=== PATIENT | female | born 1990 | race Two or more races ===

== ENCOUNTER 2019-03-21 19:10 | Inpatient (IN) | payer OTHER ==
[2019-03-21] MEDS ORDERED: DINOPROSTONE 10 MG VAGINAL SUPPOSITORY VG ONE (20:11)
[2019-03-21 20:56] LABS: BASO % 0.4 % (0-2.0); EOS % 0.3 % (0-4.5); HEMATOCRIT 31.8 % (32.4-45.2); HEMOGLOBIN 10.5 GM/dL (10.7-15.3); LYMPH % 26.5 % (8-40); MCH 27.3 pg (25.7-33.7); MCHC 33.1 g/dl (32.0-36.0); MEAN CELL VOLUME 82.5 fl (80-96); MEAN PLT VOLUME 10.2 fl (7.5-11.1); MONO % 8.8 % (3.8-10.2); PLATELET COUNT 226 K/MM3 (134-434); RBC 3.86 M/mm3 (3.60-5.2); RDW 15.2 % (11.6-15.6); WHITE BLOOD COUNT 6.6 K/mm3 (4.0-10.0)
[2019-03-21 21:11] LABS: INR 0.82 (0.83-1.09); PROTHROMBIN TIME (PATIENT) 9.7 SEC (9.7-13.0)
[2019-03-21 21:13] LABS: ACTIVATED PTT 26.8 SECONDS (25.2-36.5)
[2019-03-21 21:16] LABS: BLOOD UREA NITROGEN 11.2 mg/dL (7-18); CALCIUM 8.4 mg/dL (8.5-10.1); CREATININE 0.7 mg/dL (0.55-1.3); POTASSIUM 4.2 mmol/L (3.5-5.1)
--- NOTE | 2019-03-21 21:16 | HP ---
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: Alzheimer's, CVA, Dementia, Migraine, Multiple Sclerosis, Peripheral Neuropathy, Parkinson's, Seizure, Syncope, TIA, Vertigo, Other Cardiovascular: No: AFIB, Aneurysm, Aortic Insufficiency, Aortic Stenosis, CAD, CHF, Deep Vein Thrombosis, HTN, Hyperlipdemia, SC, Mitral Insufficiency, Mitral Stenosis, Murmur, Pulmonary Hypertension, Other Pulmonary: No: Asthma, Bronchitis, Cancer, COPD, O2 Dependent, Pneumonia, Previously Intubated, Pulmonary Embolus, Pulmonary Fibrosis, Sleep Apnea, Other Gastrointestinal: No: Ascites, Cancer, Constipation, Crohn's Disease, Diverticulitis, Diverticulosis, Esophageal Varices, Gastritis, GERD, GI Bleed, Hemorrhoids, Hiatal Hernia, Inflamatory Bowel Disease, Irritable Bowel Disease, Pancreatitis, Peptic Ulcer Disease, Ulcerative Colitis, Other Hepatobiliary: No: Cirrhosis, Cholelithiasis, Cholecystitis, Choledocholithiasis , Hepatitis A, Hepatitis B, Hepatitis C, Other Renal/: No: Renal Failure, Renal Inusuff, BPH, Cancer, Hematuria, Hemodialysis , Neurogenic Bladder, Renal Calculi, UTI, Other Reproductive: No: Ectopic , Endometriosis, Fibroids, PID, Polycystic Ovary Syndrome, Postmenopausal, Other Heme/Onc: No: Anemia, B12 Deficiency, Bleeding Disorder, Cancer, Current Chemotherapy, Current Radiation Therapy, Hemochromatosis, Hypercoaguable State, Myeloproliferative Synd, Sickle Cell Disease, Sickle Cell Trait, Thrombocytopenia, Other Infectious Disease: No: AIDS, C-Diff, Herpes Zoster, HIV, MRSA, STD's, Tuberculosis, VREF, Other Psych: No: Addictions, Anxiety, Bipolar, Depression, Panic, Psychosis, Schizophrenia, Other Musculoskeletal: No: Bursitis, Chronic low back pain, Hemiparesis, Hemiplegia, Osteoarthritis, Paraplegia, Other Rheumatology: No: Fibromyalgia, Gout, Lupus, Rheumatoid Arthritis, Sarcoidosis, Vasculitis, Other ENT: No: Allergic Rhinitis, Sinusitis, Other Endocrine: No: [place]'s Disease, Melody's Disease, Diabetes Insipidus, Diabetes Mellitus, Hyperparathyroidism, Hyperthyroidism, Hypothyroidism, Osteopenia, SIADH, Other Dermatology: No: Basal Cell, Cellulitis, Eczema, Melanoma, Psoriasis, Squamous Cell, Other - Past Surgical History Past Surgical History: No: None, AAA Repair, AICD, Amputation, Appendectomy, Arthrosocopy, AV Fistula/Graft, Bariatric Surgery, Breast Biopsy, Bypass, CABG, Carotid Endarterectomy, Cataract Removal, Cholecystectomy, Colectomy, Colonoscopy, Colostomy, Craniotomy, , Cystectomy, Hernia Repair, Hysterectomy, Ileal Conduit, Ileosotomy, Joint Replacement, Kidney Transplant, Laminectomy, Liver Transplant, Mastectomy, Nephrectomy, Oopherectomy, Orchiectomy, Permanent Pacemaker, Prostatectomy, Splenectomy, Stent, Thoracotomy , TURP, Tonsillectomy, Tubal Ligation, Upper Endoscopy, Valve Replacement, Vasectomy, Vein Stripping/Ligation Hx Myomectomy: No Hx Transabdominal Cerclage: No - Smoking History Smoking history: Never smoked - Alcohol/Substance Use Hx Alcohol Use: No History of Substance Use: reports: None - Social History History of Recent Travel: No Family Medical History Family History: Unremarkable Review of Systems Unable to obtain ROS, reason: unremarkable - Review of Systems Constitutional: reports: No Symptoms Eyes: reports: No Symptoms HENT: reports: No Symptoms Neck: reports: No Symptoms Cardiovascular: reports: No Symptoms Respiratory: reports: No Symptoms Gastrointestinal: reports: No Symptoms Genitourinary: reports: No Symptoms Breasts: reports: No Symptoms Reported Musculoskeletal: reports: No Symptoms Integumentary: reports: No Symptoms Neurological: reports: No Symptoms Endocrine: reports: No Symptoms Hematology/Lymphatic: reports: No Symptoms Psychiatric: reports: No Symptoms Physical Exam - Maternity Vital Signs: as reported Constitutional: Yes: Well Nourished HENT: Yes: Atraumatic Neck: Yes: Supple Cardiovascular: Yes: Regular Rate and Rhythm Breast(s): Yes: Other (deferred) - Abdominal Exam/OB Number of Fetuses: Single Presentation: Vertex (bedside sono: Cephalic) Contractions: No Regularity: Irritability Intensity: Unaware Monitor Mode: External Category: I Accelerations: Uniform Decelerations: None - Vaginal Exam/OB Vaginal Bleediing: Yes Speculum Exam: No (Cervidil placed in vaginal vault) Dilatation (cm): 0 Effacement (%): 0 Amniotic Membrane Status: Intact Presentation: Vertex/Position (bedside sono) Station: -3 - Physical Exam Musculoskeletal: Yes: WNL Extremities: Yes: WNL Edema: No Integumentary: Yes: WNL Deep Tendon Reflex Grade: Normal +2 ...Motor Strength: WNL Psychiatric: Yes: Alert, Oriented - Labs Lab Results: CBC, BMP 03/21/19 20:25 Imaging - Results Ultrasound: Report Reviewed Assessment/Plan 28 y/o G1 @ 40.6wks, induction of labor due to late term, reassuring status, unfavorable cervix, EFW approximately 3500 by official sono. Patient was extensively counseled regarding indcution of labor including risks/ complications -Admit -Induction of labor with cervidil
[2019-03-21] MEDS: ELECTROLYTE-148 SOLN 1,000 ML IV SCH (21:30)
[2019-03-21 21:39] VITALS: BMI 31.2
--- NOTE | 2019-03-22 08:48 | PN ---
Ante-Partal Exam - Subjective Subjective: Patient evaluated following cervidil falling out. Vital Signs: Vital Signs Temperature 97.4 F L 03/22/19 07:00 Pulse Rate 77 03/22/19 08:00 Respiratory Rate 20 03/22/19 08:00 Blood Pressure 118/66 03/22/19 08:00 O2 Sat by Pulse Oximetry (%) Bleeding: No Headache: No Visual changes: No Right upper quadrant pain: No - Contractions Contractions: Yes Regularity: Irregular Intensity: Mild Monitor Mode: External - Exam during Labor Heart Rate: 130 Variability: Moderate Category: I Monitor Accelerations: Present Monitor Decelerations: None Exam: Vaginal (cervidil placed in vaginal vault) Dilatation (cm): 0.5 Effacement (%): 20 Amniotic Membrane Status: Intact Presentation: Vertex Station: -3 - Assessment/Plan Assessment/Plan: 28 y/o G1 @ 41.0wks, induction of labor for late term, reassuring status, stable maternal condition -Continue IOL with cervidil -Continuous monitoring -regular diet for breakfast
--- NOTE | 2019-03-22 15:42 | PN ---
Progress Note (short form) - Note Progress Note: 28 yrs , 41 weeks , s/p cervidil induction , 2nd cervidil inserted 8.25 AM gbs neg heart tracing reviewed cat-1 uc are irregular 2-3-5 min mild to moderate pt ambulating pelvic exam : 3 cm/80 % mi /vx -2 /pelvis adequate pt prefers iv meds for labor analgesia . pt wants to continue ambulation last sono on 03/16/19, 38.3 weeks, , vx, , sivakumar 10.5, efw 7'12" ( 50 %tile) . Nt/ AFP screen neg Selected Entries 03/22/19 15:11 Temperature 98.2 F Pulse Rate 72 Blood Pressure 138/[address] induction of labor trial of vaginal delivery Laboratory Tests 03/21/19 03/21/19 03/21/19 20:25 20:25 20:25 WBC 6.6 Hgb 10.5 L Hct 31.8 L Plt Count 226 PT with INR 9.70 INR 0.82 L PTT (Actin FS) 26.8 Sodium 139 Potassium 4.2 Chloride 110 H Carbon Dioxide 21 BUN 11.2 Creatinine 0.7 Random Glucose 75 Calcium 8.4 L RPR Titer 03/21/19 20:25 WBC Hgb Hct Plt Count PT with INR INR PTT (Actin FS) Sodium Potassium Chloride Carbon Dioxide BUN Creatinine Random Glucose Calcium RPR Titer Nonreactive
[2019-03-22] MEDS ORDERED: FENTANYL/BUPIVACAINE/NS/PF - PCEA - 50 ML DISP.SYRIN EP ONE (17:00)
--- NOTE | 2019-03-22 17:42 | PN ---
Progress Note (short form) - Note Progress Note: 4.55 PM uc are irregular 1-3 min , mod to strong fhr 150-170 , base line gradually risen up from 140 to 150 to, 160,. accels to 170 bpm pt uncomfortable pelvic 4cm/80 %/DE /Vx -2/pelvis adequate cervidil removed pt agrees for epidural labor analgesia Selected Entries 03/22/19 03/22/19 16:00 16:11 Temperature 99.0 F 99.0 F Pulse Rate 76 Blood Pressure 138/76 repeat temp 5.30PM 98.7 will start pitocin augmentation , when base line is normal wiihin range of 140- 160 , fhr cat-1
[2019-03-22] MEDS ORDERED: NALOXONE HCL 0.4 MG/ML VIAL IVPUSH PRN (18:04)
[2019-03-22] MEDS ORDERED: FENTANYL/BUPIVACAINE/NS/PF - PCEA - 50 ML DISP.SYRIN EP SCH (18:15)
[2019-03-22] MEDS ORDERED: OXYTOCIN 30 UNITS in 0.9% NS 30 UNIT/500 ML INFUS.BAG IVPB SCH (18:15)
[2019-03-22] MEDS ORDERED: OXYTOCIN 30 UNITS in 0.9% NS 30 UNIT/500 ML INFUS.BAG IVPB ONE (18:18)
--- NOTE | 2019-03-22 19:45 | PN ---
Progress Note, Labor Vaginal Exam #1 Labor Exam Date: 03/22/19 Labor Exam Time: 19:30 Heart Rate (range): 130-140 Dilatation: 6-7 Effacement (%): 90 Amniotic Membrane Status: Ruptured (srom at 19.20 hr light meconium) Presentation: Vertex/Position Station: -1 (-1/0) Remarks: uc 3-5 min fhr cat-1 epidural given at 17.30 hr pitocin augmentation at 18.25 hr Selected Entries 03/22/19 03/22/19 18:45 19:00 Temperature 99.7 F H Pulse Rate 72 Blood Pressure 132/79 Vaginal Exam #2 Labor Exam Date: 03/22/19 Labor Exam Time: 20:20 Heart Rate (range): 130 Dilatation: 10 Effacement (%): 100 Amniotic Membrane Status: Ruptured Station: +2 Remarks: uc 2-3 min fhr cat-1 , early decl seen pt feels pressure Selected Entries 03/22/19 03/22/19 19:30 20:00 Temperature 99.5 F Pulse Rate 72 Blood Pressure 148/83
[2019-03-22] MEDS: ELECTROLYTE-148 SOLN 1,000 ML IV SCH (20:00)
[2019-03-22] MEDS ORDERED: OXYTOCIN 20 UNITS in 0.9% NS 20 UNIT/1,000 ML INFUS.BAG IV ONE (20:26)
[2019-03-22] MEDS ORDERED: LIDOCAINE HCL 1% PRESERVATIVE FREE - 30ML VIAL ONE (20:26)
[2019-03-22] MEDS ORDERED: oxyCODONE HCL 5 MG TABLET PO PRN (22:55)
[2019-03-22] MEDS ORDERED: BISACODYL 10 MG SUPP.RECT RC PRN (22:55)
[2019-03-22] MEDS ORDERED: BENZOCAINE 20% 57 GM BOTTLE TP PRN (22:55)
[2019-03-22] MEDS ORDERED: BENZOCAINE 28 GM HEMORRHOIDAL OINTMENT TP PRN (22:55)
[2019-03-22] MEDS ORDERED: WITCH HAZEL 50% (TUCKS) 40 PAD/JAR PAD TP PRN (22:55)
[2019-03-22] MEDS ORDERED: METHYLERGONOVINE MALEATE 0.2 MG/1 ML AMP IM PRN (22:55)
[2019-03-22] MEDS: OXYTOCIN 20 UNITS in 0.9% NS 20 UNIT/1,000 ML INFUS.BAG IV SCH (23:00)
--- NOTE | 2019-03-22 23:11 | PN ---
Delivery - Delivery Vaginal Delivery: No Problems, Spontaneous ( , vx, flores position , large caput , immediate suction of oral & nasal cvity was done at perineum , shoulders delievered without difficulty, 9/9. placenta & membranes delievered completely without difficulty .Median epi was given to prevent laceration from extending deep . lt lateral vaginal laceration near introitus suture with chr catgut #2/0 . episiotomy was sutured in layers with chr catgut # 2/0. local infiltration was given prior to suturing . MI exam mucosa & sphincter intact. trivascular cord. cord blood gas & cord blood collected. 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 low grade fever T max 99.7 intrapartum noted intrapartum course uneventful
[2019-03-23] MEDS ORDERED: IBUPROFEN 600 MG TABLET (FP) PO ONE (00:03)
[2019-03-23] MEDS ORDERED: ACETAMINOPHEN 325 MG TABLET (FP) ONE (00:04)
[2019-03-23] MEDS: ACETAMINOPHEN 325 MG TABLET (FP) PO PRN ×3 (00:05→14:16)
[2019-03-23] MEDS: IBUPROFEN 600 MG TABLET (FP) PO PRN ×3 (06:29→14:16)
[2019-03-23 08:39] LABS: BASO % 0.2 % (0-2.0); EOS % 0.1 % (0-4.5); HEMATOCRIT 23.8 % (32.4-45.2); HEMOGLOBIN 7.9 GM/dL (10.7-15.3); LYMPH % 15.9 % (8-40); MCH 27.5 pg (25.7-33.7); MCHC 33.3 g/dl (32.0-36.0); MEAN CELL VOLUME 82.6 fl (80-96); MEAN PLT VOLUME 10.1 fl (7.5-11.1); NEUT % 75.8 % (42.8-82.8); PLATELET COUNT 177 K/MM3 (134-434); RBC 2.89 M/mm3 (3.60-5.2); RDW 15.6 % (11.6-15.6); WHITE BLOOD COUNT 10.2 K/mm3 (4.0-10.0)
--- NOTE | 2019-03-23 08:47 | PN ---
Post Progress Note - Subjective Subjective: no c/o dizziness voided without difficulty Post Day: 1 Type of Delivery: Vital Signs: Vital Signs Temperature 97.4 F L 03/23/19 06:00 Pulse Rate 71 03/23/19 06:00 Respiratory Rate 18 03/23/19 06:00 Blood Pressure 114/70 03/23/19 06:00 O2 Sat by Pulse Oximetry (%) 99 03/22/19 21:45 Breast Exam: Yes: Soft, Other (attempting BF ). No: Engorged Uterus: Yes: Fundus Firm, Fundus below umbilicus, Non-tender Lochia: Yes: Rubra Lochia, amount: Moderate Extremities: Yes: Calves non-tender, Edema Perineum: Yes: Episiotomy (healing, no edema around ) Activity: Ambulating - Labs Labs: CBC WBC 10.2 K/mm3 (4.0-10.0) H 03/23/19 08:15 RBC 2.89 M/mm3 (3.60-5.2) L 03/23/19 08:15 Hgb 7.9 GM/dL (10.7-15.3) L 03/23/19 08:15 Hct 23.8 % (32.4-45.2) L D 03/23/19 08:15 MCV 82.6 fl (80-96) 03/23/19 08:15 MCH 27.5 pg (25.7-33.7) 03/23/19 08:15 MCHC 33.3 g/dl (32.0-36.0) 03/23/19 08:15 RDW 15.6 % (11.6-15.6) 03/23/19 08:15 Plt Count 177 K/MM3 (134-434) D 03/23/19 08:15 MPV 10.1 fl (7.5-11.1) 03/23/19 08:15 Absolute Neuts (auto) 7.8 K/mm3 (1.5-8.0) 03/23/19 08:15 Neutrophils % 75.8 % (42.8-82.8) 03/23/19 08:15 Lymphocytes % 15.9 % (8-40) D 03/23/19 08:15 Monocytes % 8.0 % (3.8-10.2) 03/23/19 08:15 Eosinophils % 0.1 % (0-4.5) 03/23/19 08:15 Basophils % 0.2 % (0-2.0) 03/23/19 08:15 Nucleated RBC % 0 % (0-0) 03/23/19 08:15 Problem List - Problems (1) Post term , 41 weeks Code(s): O48.0 - POST-TERM ; Z3A.41 - 41 WEEKS GESTATION OF (2) Status post induction of labor Code(s): Z98.890 - OTHER SPECIFIED POSTPROCEDURAL STATES (3) Normal vaginal delivery Code(s): O80 - ENCOUNTER FOR FULL-TERM UNCOMPLICATED DELIVERY (4) Anemia Code(s): D64.9 - ANEMIA, UNSPECIFIED Qualifiers: Anemia type: iron deficiency Iron deficiency anemia type: inadequate dietary iron intake (5) Encounter for care and examination after delivery Code(s): Z39.2 - ENCOUNTER FOR ROUTINE FOLLOW-UP Assessment/Plan anemia severe post delivery . pt hemodynamically stable anemia counselled ct pp po iron & pnv
[2019-03-23] MEDS: FERROUS SO4 325 MG TABLET (FP) PO SCH ×2 (09:40→17:45)
[2019-03-23] MEDS: PRENATAL VITAMINS W/ FOLIC ACID TABLET (FP) PO SCH (09:40)
[2019-03-23] MEDS ORDERED: DIPHTH,PERTUSS(ACELL),TET 0.5 ML DISP.SYRIN IM ONE (10:00)
[2019-03-23] MEDS ORDERED: SENNOSIDES/DOCUSATE COMBO (SENNA PLUS) TABLET (UD) PO PRN (22:00)
[2019-03-24] MEDS: ELECTROLYTE-148 SOLN 1,000 ML IV SCH (01:08)
[2019-03-24] MEDS: OXYTOCIN 20 UNITS in 0.9% NS 20 UNIT/1,000 ML INFUS.BAG IV SCH (01:09)
--- NOTE | 2019-03-24 07:55 | DS ---
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 Signs: Vital Signs Temperature 97.8 F 03/23/19 21:09 Pulse Rate 82 03/23/19 21:09 Respiratory Rate 20 03/23/19 21:09 Blood Pressure 108/67 03/23/19 21:09 O2 Sat by Pulse Oximetry (%) 99 03/22/19 21:45 Selected Entries 03/24/19 09:00 Temperature 97.5 F L Pulse Rate 81 Blood Pressure 109/86 Constitutional: Yes: Pallor (not symptomatic, no c/o dizziness) Eyes: Yes: WNL Cardiovascular: Yes: WNL Respiratory: Yes: WNL Gastrointestinal: Yes: WNL ...Rectal Exam: Yes: WNL Renal/: Yes: WNL ....Post : Yes: Uterus firm, Uterus non-tender, Moderate lochia rubra ( perineum healing,soreness less) Breast(s): Yes: WNL (BF,breast not engorged) Musculoskeletal: Yes: WNL Extremities: Yes: WNL. No: Calf Tenderness Edema: LLE: 1+, RLE: 1+ Integumentary: Yes: WNL Neurological: Yes: WNL ...Motor Strength: WNL Psychiatric: Yes: WNL Labs: CBC, BMP 03/23/19 08:15 03/21/19 20:25 Delivery - Delivery Vaginal Delivery: No Problems, Spontaneous ( , vx, flores position , large caput , immediate suction of oral & nasal cvity was done at perineum , shoulders delievered without difficulty, 9/9. placenta & membranes delievered completely without difficulty .Median epi was given to prevent laceration from extending deep . lt lateral vaginal laceration near introitus suture with chr catgut #2/0 . episiotomy was sutured in layers with chr catgut # 2/0. local infiltration was given prior to suturing . AL exam mucosa & sphincter intact. trivascular cord. cord blood gas & cord blood collected. 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 low grade fever T max 99.7 intrapartum noted intrapartum course uneventful anemia noted hemodynamically stable anemia counselled pericare explained discharge today. Discharge Summary Problems reviewed: Yes Reason For Visit: INDUCTION OF LABOR Current Active Problems Anemia (Acute) Encounter for care and examination after delivery (Acute) Normal vaginal delivery (Acute) Post term , 41 weeks (Acute) Status post induction of labor (Acute) Procedures: Principal: Other Procedures: cervidil insertion x2 for induction Hospital Course: uneventful Health Concerns: anemia Plan of Treatment: as directed Goals: maternal & well being Condition: Stable - Instructions Diet, Activity, Other Instructions: Post Instructions DIET: Continue good diet high in protein, calcium, and iron rich foods. Drink at least eight (8) glasses of water daily in addition to other fluids. ct Regular diet MEDICATIONS: Continue vitamins and iron as previously directed. Motrin and Tylenol may be taken for minor discomfort. ACTIVITY: Mild to moderate exercise may be started in two (2) weeks. Take frequent rest periods. Resume normal activity after six (6) week check up. WOUND CARE OF OPERATIVE SITE: Continue use of perineal bottle until vaginal discharge stops. Keep area clean. Shower daily. Keep abdominal wound dry. Report any drainage or redness to physician. Tub baths, tampons and douches are not permitted for 6 weeks. SITZ BATH PRN FOR PAIN TID ct Breast feeding & or Bottle feeding BREAST CARE: (For those that are not breast feeding): If engorgement occurs: Wear tight fitting bra. Take Tylenol or Motrin for pain. Apply cold packs (ice in bags to each breast ) FAMILY PLANNING: There are many control alternatives to pursue and they should be discussed at your first office visit. You may resume sexual activity after your six (6) week check up. (Remember, is not a contraceptive) NEXT PHYSICIAN APPOINTMENT: Be certain to call for a four -six (4-6) week appointment, unless otherwise directed. REPEAT CBC ON PP VISIT Call Clinic or got to Emergency Dept if you have any of the following: Heavy vaginal bleeding Painful urination Leg pain Unusual odor noted to vaginal bleeding High fever Red streaking noted on breast Referrals: Candis Garcia MD [Staff Physician] - Disposition: HOME - Home Medications Comprehensive Discharge Medication List: Ambulatory Orders Acetaminophen [Tylenol .Regular Strength -] 650 mg PO Q3H PRN tablet 03/23/19 Benzocaine [Americaine 20% [place] -] 1 spray TP PRN PRN bottle 03/23/19 Ferrous Sulfate [Feosol] 325 mg PO BIDWM #60 tab 03/23/19 Ibuprofen [Motrin -] 600 mg PO Q4H PRN #30 tablet 03/23/19 Vitamins (Sjr) - 1 tab PO DAILY #30 tablet 03/23/19 Sennosides/Docusate Sodium [Pericolace -] 2 tablet PO HS PRN #30 tablet [place] 50% (Tucks) [Tucks Pads -] 1 pad TP PRN PRN pad 03/23/19
[2019-03-24] MEDS: FERROUS SO4 325 MG TABLET (FP) PO SCH (08:06)
[2019-03-24] MEDS: IBUPROFEN 600 MG TABLET (FP) PO PRN (08:06)
[2019-03-24] MEDS: ACETAMINOPHEN 325 MG TABLET (FP) PO PRN (08:06)
[2019-03-24] MEDS ORDERED: FLU VACC QS2019-20(6MOS UP)/PF 60 MCG/0.5 ML SYRINGE IM ONE (08:15)
[2019-03-24 09:00] VITALS: BP 109/86; PULSE 81; TEMP 97.5
[2019-03-24] MEDS: PRENATAL VITAMINS W/ FOLIC ACID TABLET (FP) PO SCH (09:45)
[2019-03-24] MEDS ORDERED: FLU VACCINE QUAD 60 MCG/0.5 ML (MDV 19-20) IM ONE (10:00)
== END 2019-03-24 14:10 | disposition home or self-care (01) | DRG 560 ==
LOC: JLDR 19:10 → J3W 03-23 00:35
PROVIDERS: ADMIT Obstetrics & Gynecology; ATTEND Obstetrics & Gynecology
PROC: 3E0P7VZ Introduction of Hormone into Female Reproductive, Via Natural or Artificial Opening (ICD-10-PCS; 2019-03-21)
PROC: 10E0XZZ Delivery of Products of Conception, External Approach (ICD-10-PCS; principal; 2019-03-22)
PROC: 0HQ9XZZ Repair Perineum Skin, External Approach (ICD-10-PCS; 2019-03-22)
DX: O48.0 Post-term pregnancy (principal); O99.02 Anemia complicating childbirth; Z3A.41 41 weeks gestation of pregnancy; O70.0 First degree perineal laceration during delivery; Z37.0 Single live birth
CPT/HCPCS: 36415; 36600; 59409; 80048; 82803; 85025; 85610; 85730; 86593; 86850; 86900; 86901; 90686; 90715

== ENCOUNTER 2020-09-27 06:15 | Inpatient (IN) | payer OTHER ==
[2020-09-27] MEDS ORDERED: CITRIC ACID/SODIUM CITRATE 30 ML UNIT-DOSE CUP PO ONE (08:30)
[2020-09-27] MEDS ORDERED: ELECTROLYTE-148 SOLN 500 ML IV ONE (08:30)
[2020-09-27 08:38] VITALS: BMI 32.2
[2020-09-27] MEDS ORDERED: OXYTOCIN 20 UNITS in 0.9% NS 40 UNIT/2,000 ML INFUS.BAG IV ONE (08:46)
[2020-09-27] MEDS ORDERED: morphine SULFATE/PF 0.5 MG/ML (2cc Syringe - QUVA) ONE (08:50)
[2020-09-27] MEDS ORDERED: ceFAZolin SODIUM 1 GM VIAL ONE (08:50)
[2020-09-27] MEDS ORDERED: OXYTOCIN 10 UNITS/ML VIAL ONE (09:26)
[2020-09-27] MEDS ORDERED: DEXAMETHASONE SOD PHOSPHATE 4 MG/1 ML VIAL ONE (09:26)
[2020-09-27] MEDS ORDERED: ONDANSETRON 4 MG/2 ML VIAL ONE (09:26)
[2020-09-27] MEDS ORDERED: KETOROLAC TROMETHAMINE 30 MG/1 ML VIAL ONE (09:47)
[2020-09-27] MEDS: OXYTOCIN 20 UNITS in 0.9% NS 20 UNIT/1,000 ML INFUS.BAG IV SCH ×3 (10:15→23:45)
[2020-09-27] MEDS ORDERED: oxyCODONE HCL 5 MG TABLET PO PRN (10:18)
[2020-09-27] MEDS ORDERED: METHYLERGONOVINE MALEATE 0.2 MG/1 ML AMP IM PRN (10:18)
[2020-09-27] MEDS ORDERED: SENNOSIDES/DOCUSATE COMBO (SENNA PLUS) TABLET (UD) PO PRN (10:18)
[2020-09-27] MEDS ORDERED: ONDANSETRON 4 MG/2 ML VIAL IVPUSH PRN (10:35)
[2020-09-27] MEDS ORDERED: ACETAMINOPHEN 1000 MG/100 ML VIAL (NON FORMULARY) IVPB PRN (10:36)
[2020-09-27 11:48] LABS: CORD BASE EXCESS -4.2 mmol/L (0-2); CORD PCO2 44.1 mmHg (30-78); CORD pH 7.315 (7.14-7.44)
[2020-09-27 11:49] LABS: CORD HCO3 26.2 mmHg (20-29); CORD PCO2 74.4 mmHg (30-78); CORD pH 7.165 (7.14-7.44)
[2020-09-27] MEDS ORDERED: OXYTOCIN 20 UNITS in 0.9% NS 20 UNIT/1,000 ML INFUS.BAG IV ONE (14:33)
[2020-09-27] MEDS: IBUPROFEN 800 MG/8 ML IJ IVPB PRN (16:05)
[2020-09-27] MEDS: CEFAZOLIN 1 GM/D5W 1 GM/50 ML BAG IVPB SCH (18:10)
[2020-09-28] MEDS: CEFAZOLIN 1 GM/D5W 1 GM/50 ML BAG IVPB SCH ×2 (02:00→10:41)
[2020-09-28] MEDS: IBUPROFEN 800 MG/8 ML IJ IVPB PRN (05:07)
[2020-09-28 07:04] LABS: BASO % 0.3 % (0-2.0); EOS % 0.3 % (0-4.5); HEMATOCRIT 31.8 % (32.4-45.2); HEMOGLOBIN 10.8 GM/dL (10.7-15.3); LYMPH % 19.4 % (8-40); MCH 32.1 pg (25.7-33.7); MCHC 34.1 g/dl (32.0-36.0); MEAN CELL VOLUME 94.4 fl (80-96); MEAN PLT VOLUME 10.3 fl (7.5-11.1); MONO % 9.1 % (3.8-10.2); NEUT % 70.9 % (42.8-82.8); PLATELET COUNT 163 K/MM3 (134-434); RBC 3.37 M/mm3 (3.60-5.2); RDW 14.9 % (11.6-15.6); WHITE BLOOD COUNT 8.6 K/mm3 (4.0-10.0)
[2020-09-28] MEDS ORDERED: BISACODYL 10 MG SUPP.RECT RC PRN (10:18)
[2020-09-28] MEDS: ELECTROLYTE-148 SOLN 1,000 ML IV SCH ×2 (10:39→12:53)
[2020-09-28] MEDS: PRENATAL VITAMINS W/ FOLIC ACID TABLET (FP) PO SCH (10:41)
[2020-09-28] MEDS: ENOXAPARIN NA (PORCINE) 40 MG/0.4 ML DISP.SYRIN SQ SCH (10:41)
[2020-09-28] MEDS: OXYTOCIN 20 UNITS in 0.9% NS 20 UNIT/1,000 ML INFUS.BAG IV SCH (11:11)
[2020-09-28] MEDS: ACETAMINOPHEN 325 MG TABLET (FP) PO PRN ×3 (13:06→22:03)
[2020-09-28] MEDS: SIMETHICONE 80 MG TAB.CHEW (FP) PO PRN ×2 (13:06→18:18)
[2020-09-28] MEDS: IBUPROFEN 600 MG TABLET (FP) PO PRN ×3 (13:06→22:03)
[2020-09-28] MEDS: FERROUS SO4 325 MG TABLET (FP) PO SCH (22:18)
[2020-09-29] MEDS: ACETAMINOPHEN 325 MG TABLET (FP) PO PRN ×2 (06:26→20:20)
[2020-09-29] MEDS: IBUPROFEN 600 MG TABLET (FP) PO PRN ×2 (06:26→20:20)
[2020-09-29] MEDS: SIMETHICONE 80 MG TAB.CHEW (FP) PO PRN ×2 (06:26→20:20)
[2020-09-29] MEDS: FERROUS SO4 325 MG TABLET (FP) PO SCH ×2 (09:53→21:58)
[2020-09-29] MEDS: PRENATAL VITAMINS W/ FOLIC ACID TABLET (FP) PO SCH (09:53)
[2020-09-29] MEDS: ENOXAPARIN NA (PORCINE) 40 MG/0.4 ML DISP.SYRIN SQ SCH (09:54)
[2020-09-30 07:17] LABS: BASO % 0.4 % (0-2.0); EOS % 2.2 % (0-4.5); HEMATOCRIT 34.4 % (32.4-45.2); HEMOGLOBIN 11.7 GM/dL (10.7-15.3); LYMPH % 25.4 % (8-40); MCH 32.3 pg (25.7-33.7); MEAN CELL VOLUME 95.1 fl (80-96); MEAN PLT VOLUME 9.9 fl (7.5-11.1); MONO % 9.5 % (3.8-10.2); NEUT % 62.5 % (42.8-82.8); PLATELET COUNT 232 K/MM3 (134-434); RBC 3.62 M/mm3 (3.60-5.2); RDW 15.1 % (11.6-15.6); WHITE BLOOD COUNT 7.3 K/mm3 (4.0-10.0)
[2020-09-30] MEDS: PRENATAL VITAMINS W/ FOLIC ACID TABLET (FP) PO SCH (09:16)
[2020-09-30] MEDS: ENOXAPARIN NA (PORCINE) 40 MG/0.4 ML DISP.SYRIN SQ SCH (09:16)
[2020-09-30] MEDS: FERROUS SO4 325 MG TABLET (FP) PO SCH (09:16)
[2020-09-30 12:08] VITALS: BP 109/66; PULSE 84; TEMP 97.9
== END 2020-09-30 14:05 | disposition home or self-care (01) | DRG 540 ==
LOC: JLDR 06:15 → J3N 15:50 → J3W 09-29 13:25
PROVIDERS: ADMIT Obstetrics & Gynecology; ATTEND Obstetrics & Gynecology
PROC: 10D00Z1 Extraction of Products of Conception, Low, Open Approach (ICD-10-PCS; principal; 2020-09-27)
DX: O32.1XX0 Maternal care for breech presentation, not applicable or unspecified (principal); Z3A.39 39 weeks gestation of pregnancy; Z37.0 Single live birth
CPT/HCPCS: 36415; 36600; 80053; 81003; 82803; 85025; 85610; 86780; 86850; 86900; 86901; 88307-TC; C9803; U0003; U0005